=== PATIENT | male | born 1985 | race Two or more races ===

== ENCOUNTER 2016-05-05 20:25 | Emergency (ER) | payer BC, MEDICAID ==
[2016-05-05] MEDS ORDERED: ALBUTEROL/IPRATROPIUM 2.5/0.5 MG 3 ML/EACH DOSE ONE (21:09)
[2016-05-05] MEDS ORDERED: ACETAMINOPHEN 500 MG TABLET ONE (21:16)
[2016-05-05] MEDS ORDERED: IBUPROFEN 600 MG TABLET ONE (21:17)
--- NOTE | 2016-05-06 07:52 | RAD ---
Exam: Two-view chest COMPARISON: None INDICATION: Cough and wheezing. FINDINGS: PA and lateral views of the chest were obtained. Lung volumes are low, accounting for the apparent prominence of the cardiac silhouette and bronchovascular markings. There is no focal airspace disease or pleural effusion. Bones of the chest wall within normal limits. IMPRESSION: Hypoventilatory exam. No acute pulmonary process.
--- NOTE | 2016-05-06 07:55 | RAD ---
LUMBAR SPINE 3 VIEWS HISTORY: Low back pain. Frontal, lateral, and frontal cone down views of lumbar spine acquired. COMPARISON: None. ALIGNMENT: Grossly unremarkable. DISC SPACES: Mild narrowing at L4-5. COMPRESSION DEFORMITY: None. FACET JOINTS: Minor degeneration at L4-5, subtle radiolucency projecting over posterior elements at L5. DISPLACED FRACTURE FRAGMENT: None identified. IMPRESSION: Minor disc degeneration at L4-5. No compression deformity or displaced fracture fragment. Possible pars interarticularis defects of L5, recommend oblique views.
== END 2016-05-05 22:20 | disposition home or self-care (01) ==
LOC: ED 20:25
DX: M54.5 Low back pain (principal); Z77.098 Contact with and (suspected) exposure to other hazardous, chiefly nonmedicinal, chemicals
CPT/HCPCS: 71020; 72100; 94640; 99283 ×2; A9270 ×2